=== PATIENT | female | born 1995 | race Two or more races ===

== ENCOUNTER 2018-01-20 01:23 | Emergency (ER) | payer OTHER ==
[~2018-01-20] VITALS: Ht 170.2 cm; Wt 61.2 kg
[2018-01-20] MEDS ORDERED: ZANTAC150 MG (01:41)
[2018-01-20] MEDS ORDERED: WELLBUTRIN SR150 MG (01:41)
[2018-01-20] MEDS ORDERED: KETO10TA2 PO (12:35)
[2018-01-20] MEDS ORDERED: MEDROLPACK PO (12:35)
[2018-01-20] MEDS ORDERED: NORFLEX100MG PO (12:35)
[2018-01-20] MEDS ORDERED: NEURONTIN600 MG PO (12:35)
== END 2018-01-20 14:08 | disposition home or self-care (01) ==
LOC: ER 01:23
DX: M54.5 Low back pain (principal)